=== PATIENT | female | born 1990 ===

== ENCOUNTER 2016-06-02 19:56 | Inpatient (IN) | payer MEDICAID ==
[2016-06-02 20:44] VITALS: BMI 26.1
[2016-06-02] MEDS ORDERED: Lactated Ringer's 1,000 ML IV SCH (20:45)
[2016-06-02] MEDS: Lactated Ringer's 1,000 ML IV SCH (21:00)
[2016-06-02 21:26] LABS: BASO # 0.1 K/uL (0.0-0.2); BASO % 0.6 % (0.0-2.0); EOS # 0.1 K/uL (0.0-0.7); EOS % 0.8 % (0.0-4.0); HEMATOCRIT 35.5 % (34.0-47.0); LYMPH # 2.1 K/uL (1.0-4.3); LYMPH % 18.4 % (20.0-40.0); MEAN CELL VOLUME 87.7 fl (81.0-99.0); MEAN CORPUSCULAR HEMOGLOBIN 30.8 pg (27.0-31.0); MEAN CORPUSCULAR HGB CONC 35.1 g/dL (33.0-37.0); MEAN PLATELET VOLUME 9.3 fl (7.2-11.7); MONO # 0.8 K/uL (0.0-0.8); MONO % 7.1 % (0.0-10.0); NEUT # 8.2 K/uL (1.8-7.0); NEUT % 73.1 % (50.0-75.0); NRBC % 0.1 % (0.0-0.0); RED CELL DISTRIBUTION WIDTH 13.6 % (11.5-14.5); WHITE BLOOD COUNT 11.2 K/uL (4.8-10.8)
--- NOTE | 2016-06-02 22:33 | OBADHP ---
Datetime: 06/02/2016 20:00 Admit Comment, IP Provider: 26 yr at 39.1 wks GA with hypothyroidism (started Synthroid 50mcg P O daily 2 wks ago) presents to [facility] for scheduled IOL for polyhydramnios PANTERA 26.1 on todays US, BPP 8/8. Denies vaginal bleeding, LOF, ctx's. + movement. Patient continued her prenaytal care with Dr. Alicea at 19.6wks GA. Patient has no concerns or complaints at this time. care/course: continued care at 19.6wks GA, Rh neg (O neg, antibody neg), GBS neg , HIV neg, Gc/Ch neg/neg, HepBsAg neg, Rubella Immune, RPR neg, Tdap given, Influenza vaccine given OBHx: none PMHx: none SurgHx: none SocHx: denies Etoh,smoking, drugs Meds: PNV, Synthroid 50mcg PO daily Allergies: NKDA PE: VSS, patient in no acute distress Cardiac: S1 S2 normal, no murmurs/rubs/gallops Lungs: CTABL Abd: gravid, nontender Ext: no edema SVE: Monitoring: FHR 160bpm, moderate variability 6-25 bpm, accelerations 15x15, no decels, Categ ory I A: 26 yr at 39.1wks GA with hypothyroidism for IOL for polyhydramnios P: -Admit to labor and delivery -IV insertion, CBC, Type and screen, Antibody screen -Rhogam -LR 1L at 125mls/hr -Cervidil 10mg vag once -Monitor labor progress - monitoring Elissa Adams M.D. PGY1 Addendum: I saw and examined patient at presentation. Discussed induction process with patient and all sandy ent questions answered. Cx closed/50/-3. Cervadil placed. FHT reactive. Both MWB/FWB reassuring a t this time. No record of patient receiving Rhogam. Antibody screen negative now at [facility]. Will give 1 dose Rh ogam now. [place] Pelvic Type - PN: Adequate Extremities - PN: Normal Abdomen - PN: Normal Back - PN: Normal Lungs - PN: Normal Heart - PN: Normal Thyroid - PN: Normal Neurologic - PN: Normal HEENT - PN: Normal General - PN: Normal Presentation-Admit: Vertex FHR - Baseline A Provider: 160 Gestation - Est Wks by US: 39.1 IP Hx Assessment: The History has been Reviewed and is Current IP Chief Complaint: Scheduled induction of labor NICHD Variability Prov Fetus A: Moderate 6-25bpm NICHD Accel Fetus A IP Provider: 15X15 FHR Category Provider Fetus A: Category I NICHD Decel Fetus A IP Provider: None Genitourinary Exam: Normal DTRs - PN: Normal IP Adm Impression: Term, intrauterine ; No Active Labor; Intact Membranes IP Admit Plan: Admit to unit; Initiate labor induction protocol; Observation/Evaluation
[2016-06-03 06:32] VITALS: BP 104/60; PULSE 95; RESP 17; TEMP 97.2
[2016-06-03] MEDS ORDERED: Benzocaine/Menthol (Cepacol) Lozenge PO PRN (08:20)
--- NOTE | 2016-06-04 11:06 | OBPN ---
Datetime: 06/04/2016 11:01 IP Procedures: Sterile Vag Exam IP Progress Plan: Induction Membranes, Provider: Intact Contraction Comments Provider: irregular FHR - Baseline A Provider: 130 IP Progress Note Comment: 26 yo G1 at 39+3 wks for induction of labor for polyhydramnios, s/p cervid il, oral miso x 6 Will order cervidil to be placed today around 12 noon FHT reassuring NICHD Variability Prov Fetus A: Moderate 6-25bpm Dilatation, Provider: 1 Effacement, Provider: 50 Station, Provider: -2 Datetime: 06/02/2016 20:00 Gestation - Est Wks by US: 39.1 Presentation-Admit: Vertex NICHD Accel Fetus A IP Provider: 15X15 FHR Category Provider Fetus A: Category I NICHD Decel Fetus A IP Provider: None
--- NOTE | 2016-06-04 13:12 | OBPN ---
Datetime: 06/04/2016 13:01 IP Progress Impression: Normal progression of labor IP Progress Plan: Continue present management; Induction Membranes, Provider: Intact Contraction Comments Provider: irregular FHR - Baseline A Provider: 135 Gestation - Est Wks by US: 39.2 Presentation-Admit: Vertex IP Progress Note Comment: @ 39.2 wks IOL for polyhyramnios with no complaints, denies lOF, vb, ctx, +FM VSS EFM: Cat I TOCO: Irregular MEDS: s/p cervidil s/p oral miso A/P @ 39.2 wks GA IOL for polyhyramtion -For Cervdil #2 inserted 13:00 -cont current managment Vital Signs Provider: Within Normal Limits NICHD Accel Fetus A IP Provider: 15X15 NICHD Variability Prov Fetus A: Moderate 6-25bpm Dilatation, Provider: 1 Effacement, Provider: 50 Station, Provider: -3 NICHD Decel Fetus A IP Provider: None
[2016-06-05] MEDS: Oxytocin 30 units/LR 500ML 500 ML IV ONE ×2 (02:45→17:41)
[2016-06-05] MEDS: Lactated Ringer's 1,000 ML IV SCH ×4 (06:30→14:52)
--- NOTE | 2016-06-05 07:54 | OBPN ---
Datetime: 06/05/2016 01:51 IP Progress Impression: Normal progression of labor; Reassuring heart rate IP Progress Plan: Continue present management; Induction Membranes, Provider: Intact Contraction Comments Provider: q 3-5 min FHR - Baseline A Provider: 140 IP Progress Note Comment: Pt seen and examined with no complaints, dneies LOF, vb, ctx, +FM VSS EFM: Cat I TOCO: q 3-5 min MEDS s/p cervidil s/p Misoprostol s/p cervdil #2 removed 1am 06/05 A/P P0 @ 39.3 wks GA IOL, currently stable -d/c cervdil -For Pitocin as pre protocol -Cont current managment Vital Signs Provider: Reviewed; Within Normal Limits NICHD Accel Fetus A IP Provider: 15X15 FHR Category Provider Fetus A: Category I NICHD Variability Prov Fetus A: Moderate 6-25bpm Dilatation, Provider: 1-2 Effacement, Provider: 50 Station, Provider: -3 NICHD Decel Fetus A IP Provider: None
--- NOTE | 2016-06-05 07:56 | OBPN ---
Datetime: 06/05/2016 01:51 IP Progress Note Comment: Pt seen and examined with no complaints except soem pressure, dneies LOF, vb, ctx, +FM VSS EFM: Cat I TOCO: q 3-5 min MEDS s/p cervidil s/p Misoprostol s/p cervdil #2 removed 1am 06/05 A/P P0 @ 39.3 wks GA IOL, currently stable -d/c cervdil -For Pitocin as pre protocol -Cont current managment Addendum: pt was reexamined lizeth 5am complaining of pressure VSS EFM Cat I VE: 3cm PLAN continue pitocin as per protocol
--- NOTE | 2016-06-05 11:58 | OBPN ---
Datetime: 06/05/2016 11:52 IP Progress Impression: Normal progression of labor IP Procedures: Sterile Vag Exam IP Progress Plan: Augmentation Membranes, Provider: Intact Contraction Comments Provider: Q2 FHR - Baseline A Provider: 140 IP Progress Note Comment: 26 yo G1 at 39+4 wks fr induction for polyhydramnioss/p cervidil #1, oral miso x 6, cervidil #2, now on pitocin GBS negative, FHT reassuring Continue pitocin NICHD Variability Prov Fetus A: Moderate 6-25bpm Dilatation, Provider: 3-4 Effacement, Provider: 100 Station, Provider: -1 NICHD Decel Fetus A IP Provider: None
[2016-06-05] MEDS ORDERED: Lactated Ringer's 1,000 ML IV SCH (13:15)
[2016-06-05] MEDS ORDERED: Fentanyl/Bupivacaine HCl 250 ML EPI ONE (13:15)
[2016-06-05] MEDS ORDERED: Lidocaine 1% Inj (20ml) ONE (14:17)
[2016-06-05] MEDS ORDERED: Oxytocin 30 units/LR 500ML 500 ML IV ONE (14:18)
--- NOTE | 2016-06-05 14:51 | OBPN ---
Datetime: 06/05/2016 14:46 IP Progress Impression: Normal progression of labor IP Procedures: Artificial ROM; Sterile Vag Exam IP Progress Plan: Continue present management Membranes, Provider: Ruptured Amniotic Fluid Color, Provider: Clear Contraction Comments Provider: 2-3 FHR - Baseline A Provider: 140 IP Progress Note Comment: 26 yo G1 at 39+4 wks for induction for polyhydramnios, s/p AROM GBS negative, FHT reassuring FHR Category Provider Fetus A: Category II NICHD Variability Prov Fetus A: Moderate 6-25bpm Dilatation, Provider: 6-7 Effacement, Provider: 100 Station, Provider: -1 NICHD Decel Fetus A IP Provider: Variable
[2016-06-05] MEDS ORDERED: Oxycodone/Acetaminophen 5/325 mg Tab PO PRN (18:09)
[2016-06-05] MEDS ORDERED: Benzocaine/Menthol SPRAY TOP PRN (18:11)
--- NOTE | 2016-06-05 18:25 | OBDS ---
DELIVERY PERSONNEL Delivery Doctor: Glenn Chatman MD Scrub Nurse: Cathy Guadarrama RN Anesthesiologist: Nya Serrano MD Resident: Faviola Osborne MD MATERNAL INFORMATION Delivery Anesthesia: Epidural Estimated Blood Loss (ml): 200 Placenta Cultured: No Maternal Complications: None Provider Comments: Pt progressed to complete and pushed to deliver a viable female infant through cl ear fluid at 1735. Apgars 9 and 9. Wt 3155 gms, 6#15. Mouth and nares bulb-suctioned. Infant plac ed on mother's abdomen. Cord clamped and cut. Cord blood collected. Placenta delivered sponatenous ly intact w/ 3vc at 1739. Second degree tear repaired w/ 2-0 rapide and 3-0v. Straight catheter use d to empty bladder. Right labium minus tear repaired w/ 2-0 rapide and right periurethral tear repai red w/ 4-0v. Hemostatic left periurethral tear. Rectum intact. Pt and baby tolerated procedure wel l. EBL 200mL LABOR SUMMARY EDC: 06/09/2016 00:00 No. Babies in Womb: 1 Attempted: No Labor Anesthesia: Epidural LABOR INFORMATION Reason for Induction: Polyhydramnios Cervical Ripening Agents: Cervidil (Annotations: removed.) Other Ripening Agents: at 7 mu/min via pump Oxytocin: Augmentation Group B Beta Strep: Negative Antibiotics # of Doses: N/A Antibiotics Time of Last Dose: N/A Steroids Given: None Reason Steroids Not Administered: Not Applicable MEMBRANES Membranes Rupture Method: Artificial Rupture of Membranes: 06/05/2016 14:39 Length of Rupture (hrs): 2.93 Amniotic Fluid Color: Clear Amniotic Fluid Amount: Moderate Amniotic Fluid Odor: Normal STAGES OF LABOR Stage 3 hrs: 0 Stage 3 min: 4 VAGINAL DELIVERY Episiotomy: None Laceration Extension: Second Degree Laceration Type: Perineal; Vaginal; Periurethral Laceration Repair: Yes Initial Vag Sponge Count: 5 Final Vag Sponge Count: 5 Sponge Count Correct: Yes Sharps Count Correct: Yes BABY A INFORMATION Infant Delivery Date/Time: 06/05/2016 17:35 Method of Delivery: Vaginal Born in Route : No : N/A Forceps: N/A Vacuum Extraction: N/A Shoulder Dystocia : No SHOULDER DYSTOCIA BABY A Delivery Date/Time: 06/05/2016 17:35 PRESENTATION/POSITION BABY A Presentation: Cephalic Cephalic Presentation: Vertex Breech Presentation: N/A PLACENTA INFORMATION BABY A Placenta Delivery Time : 06/05/2016 17:39 Placenta Method of Delivery: Spontaneous Placenta Status: Delivered SCORES BABY A Heart Rate 1 min: >100 bpm Resp Effort 1 min: Good Cry Reflex Irritability 1 min: Cough or Sneeze or Pulls Away Muscle Tone 1 min: Active Motion Color 1 min: Body Darden, Extremities Blue SCORE 1 MIN: 9 Heart Rate 5 min: >100 bpm Resp Effort 5 min: Good Cry Reflex Irritability 5 min: Cough or Sneeze or Pulls Away Muscle Tone 5 min: Active Motion Color 5 min: Body Darden, Extremities Blue SCORE 5 MIN: 9 Resuscitation Effort 10 min: N/A INFANT INFORMATION BABY A Gestational Age at Delivery: 39.0 Gestational Status: Term Outcome : Liveborn Condition : Stable Infant Sex: Female IDENTIFICATION/MEDS BABY A ID Band Number: [id number] ID Band Location: Left Leg; Left Arm WEIGHT/LENGTH BABY A Birthweight (gms): 3155 Weight (lb): 6 Infant Weight (oz): 15 CORD INFORMATION BABY A No. Cord Vessels: 3 Nuchal Cord : N/A Cord Blood Taken: N/A Suction: None
[2016-06-06 07:24] LABS: BASO # 0.1 K/uL (0.0-0.2); BASO % 0.6 % (0.0-2.0); EOS # 0.1 K/uL (0.0-0.7); EOS % 0.6 % (0.0-4.0); LYMPH # 2.1 K/uL (1.0-4.3); LYMPH % 14.9 % (20.0-40.0); MEAN CELL VOLUME 88.9 fl (81.0-99.0); MEAN CORPUSCULAR HEMOGLOBIN 30.5 pg (27.0-31.0); MEAN CORPUSCULAR HGB CONC 34.4 g/dL (33.0-37.0); MEAN PLATELET VOLUME 9.3 fl (7.2-11.7); MONO # 1.1 K/uL (0.0-0.8); MONO % 7.7 % (0.0-10.0); NEUT # 10.9 K/uL (1.8-7.0); NEUT % 76.2 % (50.0-75.0); RED CELL DISTRIBUTION WIDTH 13.6 % (11.5-14.5); WHITE BLOOD COUNT 14.3 K/uL (4.8-10.8)
--- NOTE | 2016-06-06 12:07 | OBPPN ---
Datetime: 06/06/2016 12:05 PP Pain Prov: Within normal limits PP Nausea Prov: Denies PP Flatus Prov: Yes PP Breasts Prov: Normal PP Heart Prov: Normal PP Lungs Prov: Normal PP Abdomen/Uterus Prov: Normal PP Lochia Prov: Normal PP Vulva/Perineum Prov: Normal PP CVA Tenderness Prov: Normal PP Extremities Prov: Normal PP Comments Phys Exam Prov: Fundus firm under umbilicus PP Impression Prov: Normal progression PP Plan Prov: Continue present management PP Progress Note Prov: Patient denies CP, no SOB, no N/V, tolerating PO diet, ambulating/voiding wel l, mild lochia, abdominal pain tolerable with meds A/P PPD 1 1. COntinue post orders 2. Reg diet 3. Percocet/Motrin prn pain IP PP Procedures: None Vital Signs Provider PP: Reviewed; Within Normal Limits
[2016-06-06] MEDS ORDERED: Benzocaine/Menthol SPRAY ONE (17:48)
[2016-06-06] MEDS ORDERED: Oxycodone/Acetaminophen 5/325 mg Tab PO PRN (18:41)
[2016-06-06] MEDS ORDERED: Benzocaine/Menthol (Cepacol) Lozenge PO PRN (18:41)
[2016-06-06] MEDS ORDERED: Benzocaine/Menthol SPRAY TOP PRN (18:42)
--- NOTE | 2016-06-07 10:08 | OBPPN ---
Datetime: 06/07/2016 07:50 PP Pain Prov: Within normal limits PP Nausea Prov: Denies PP Flatus Prov: Yes PP BM Prov: Yes PP Breasts Prov: Normal PP Heart Prov: Normal PP Lungs Prov: Normal PP Abdomen/Uterus Prov: Normal PP Lochia Prov: Normal PP Vulva/Perineum Prov: Normal PP CVA Tenderness Prov: Normal PP Extremities Prov: Normal PP Impression Prov: Normal progression PP Plan Prov: Discharge PP Progress Note Prov: A/ S/P [facility] day 2 Discharge home Follow up [facility] in 6w Vital Signs Provider PP: Reviewed; Within Normal Limits
--- NOTE | 2016-06-07 10:10 | OBDCSUM ---
Datetime: 06/07/2016 10:08 Discharged to, Provider: Home Follow up at, Provider: [facility] Disch Instr Activity: Normal activity Disch Instr Diet: Regular Discharge Instructions, Provider: Routine instructions given Discharge Diagnosis, Provider: Term Delivered Follow up in weeks, Provider: 6w Disch Referrals: None Contraception discussed, Prov: Yes
== END 2016-06-07 13:45 | disposition home or self-care (01) | DRG 373 ==
LOC: H.EROB2 19:56 → H.L&D 20:44 → H.OB/GYN 06-05 21:26
PROVIDERS: ADMIT Obstetrics & Gynecology; ATTEND Obstetrics & Gynecology
PROC: 10E0XZZ Delivery of Products of Conception, External Approach (ICD-10-PCS; principal; 2016-06-02)
PROC: 0KQM0ZZ Repair Perineum Muscle, Open Approach (ICD-10-PCS; 2016-06-05)
PROC: 4A1HXCZ Monitoring of Products of Conception, Cardiac Rate, External Approach (ICD-10-PCS; 2016-06-05)
DX: O40.3XX0 Polyhydramnios, third trimester, not applicable or unspecified (principal); E03.9 Hypothyroidism, unspecified; O99.284 Endocrine, nutritional and metabolic diseases complicating childbirth; O70.1 Second degree perineal laceration during delivery; Z37.0 Single live birth; Z3A.39 39 weeks gestation of pregnancy